=== PATIENT | male | born 1975 | race Caucasian/White ===

== ENCOUNTER 2018-10-10 10:48 | Day surgery (SDC) | payer OTHER ==
[~2018-10-10 10:48] MED LIST: DICLOFENAC SODI50 MG PO; FENOFIBRATE160 MG PO; QUINAPRIL HCL20 MG PO
== END 2018-10-10 21:35 | disposition home or self-care (01) ==
LOC: CIR.AMB 10:48
DX: N20.1 Calculus of ureter (principal)

== ENCOUNTER 2019-01-19 11:11 | Outpatient (CLI) | payer OTHER | END 2019-01-19 11:19 | disposition home or self-care (01) | LOC: LAB 11:11 | DX: R13.19 Other dysphagia (principal) ==

== ENCOUNTER 2019-01-19 12:43 | Outpatient (CLI) | payer OTHER | END 2019-01-19 13:00 | disposition home or self-care (01) | LOC: TOM 12:43 | DX: N20.0 Calculus of kidney (principal); N13.1 Hydronephrosis with ureteral stricture, not elsewhere classified ==